=== PATIENT | male | born 1965 | race Caucasian/White ===

== ENCOUNTER 2020-05-25 23:50 | Inpatient (IN) | payer MEDICAID ==
[~2020-05-25] VITALS: Ht 154.9 cm; Wt 75.3 kg
[2020-05-26] VITALS (81 sets, daily range): BP systolic 81–219; BP diastolic 43–159
[2020-05-26] MEDS ORDERED: NITROGLYCERIN 0.4MG TABLET SL SL PRN (00:30)
[2020-05-26] MEDS ORDERED: NITROGLYCERIN 50MG PREMIX 250 ML IV ONE (00:30)
[2020-05-26] MEDS ORDERED: ASPIRIN 81MG TABLET PO ONE (00:30)
[2020-05-26 00:45] LABS: BASOPHILS % 0.6 % (0.0-2.0); EOSINOPHILS % 2.2 % (0.0-5.0); HEMATOCRIT. 43.2 % (42.0-52.0); HEMOGLOBIN. 14.2 g/dL (14.0-18.0); LYMPHOCYTES % 24.6 % (20.0-50.0); MEAN CORPUSCULAR HEMOGLOBIN 29.7 pg (28.0-32.0); MEAN CORPUSCULAR VOLUME 90.5 fL (80.0-94.0); MEAN PLATELET VOLUME 11.9 fl (7.4-10.4); MONOCYTES % 6.2 % (2.0-8.0); NEUTROPHILS % 66.4 % (40.0-76.0); PLATELET 269 x1000/uL (130-400); RED BLOOD CELL COUNT 4.77 mill/uL (4.7-6.1); RED CELL DISTRIBUTION WIDTH 13.7 % (11.6-14.6)
[2020-05-26] MEDS ORDERED: HEPARIN 25,000 UNITS PREMIX 250 ML IV PRN (01:00)
[2020-05-26] MEDS ORDERED: HEPARIN 5000 UNITS/ML VIAL IV SCH (01:00)
[2020-05-26] MEDS ORDERED: HEPARIN SODIUM 1,000 UNIT/1ML VIAL IV ONE (01:00)
[2020-05-26] MEDS ORDERED: MORPHINE SULFATE 4 MG/ML CPJ (NOT FOR IM USE) IV ONE (01:00)
[2020-05-26] MEDS ORDERED: ONDANSETRON HCL 4MG/2ML INJ IV ONE (01:00)
[2020-05-26 01:07] LABS: CHLORIDE 107 mEq/L (98-107)
[2020-05-26 01:08] LABS: INR 0.9; PARTIAL THROMBOPLASTIN TIME 27.7 sec (23.4-31.0); PROTHROMBIN TIME 9.5 sec (9.6-11.0)
[2020-05-26 01:11] LABS: ETHANOL BLOOD < 10 mg/dL
[2020-05-26] MEDS ORDERED: LABETALOL 5MG/ML SYR 20 MG/4 ML SYRINGE IV NR (01:30)
[2020-05-26] MEDS ORDERED: LABETALOL HCL 20MG/4ML CARPUJECT IV ONE (01:30)
[2020-05-26] MEDS ORDERED: NITROGLYCERIN OINT 1GM/INCH UDPKT TD ONE (01:45)
[2020-05-26] MEDS ORDERED: FUROSEMIDE 40MG/4ML VIAL IVP ONE (01:45)
[2020-05-26] MEDS ORDERED: LIDOCAINE HCL 1% 20ML VIAL (Pyxis) INJ ONE ×3 (02:00→10:15)
[2020-05-26] MEDS ORDERED: FENTANYL CITRATE/PF 50MCG/ML 2ML VIAL ONE (02:00)
[2020-05-26] MEDS ORDERED: MIDAZOLAM HCL 5 MG/5 ML VIAL ONE (02:00)
[2020-05-26] MEDS ORDERED: IODIXANOL 320MG/ML 100 ML BOTTLE IV ONE ×2 (02:01→02:49)
[2020-05-26 02:40] LABS: CLARITY URINE CLEAR (CLEAR); COLOR URINE YELLOW (YELLOW); KETONES URINE NEGATIVE (NEGATIVE); LEUKOCYTE ESTERASE URINE NEGATIVE (NEGATIVE); NITRITE URINE NEGATIVE (NEGATIVE); OCCULT BLOOD URINE 1+ (NEGATIVE); PROTEIN URINE 4+ (NEGATIVE); SPECIFIC GRAVITY URINE 1.023 (1.005-1.030); UROBILINOGEN URINE 0.2 E.U./dL (0.2-1.0)
[2020-05-26 02:54] LABS: *AMPHETAMINES SCREEN URINE NEGATIVE (NEGATIVE); *BARBITURATES SCREEN URINE NEGATIVE (NEGATIVE); *BENZODIAZEPINES SCREEN URINE NEGATIVE (NEGATIVE); *COCAINE SCREEN URINE NEGATIVE (NEGATIVE)
[2020-05-26 02:55] LABS: CANNABINOID URINE SCREEN NEGATIVE (NEGATIVE); METHADONE URINE SCREEN NEGATIVE (NEGATIVE); OPIATES URINE SCREEN NEGATIVE (NEGATIVE); PHENCYCLIDINE URINE SCREEN NEGATIVE (NEGATIVE)
[2020-05-26] MEDS ORDERED: MORPHINE SULFATE 2 MG/ML CPJ (NOT FOR IM USE) IV PRN (03:00)
[2020-05-26] MEDS ORDERED: ATROPINE SULFATE 1MG/10ML SYR IV PRN (03:00)
[2020-05-26] MEDS ORDERED: ACETAMINOPHEN 325MG TABLET PO PRN (03:00)
[2020-05-26] MEDS: NITROGLYCERIN 50MG PREMIX 250 ML IV PRN ×4 (04:00→23:23)
[2020-05-26 04:48] LABS: BG BASE EXCESS -7.4 mmol/L (-2.0-2.0); BG CARBOXYHEMOGLOBIN 0.3 % (0.5-1.5); BG DEOXYHEMOGLOBIN 2.9 % (0.0-5.0); BG FRACTION INSPIRED OXYGEN 40; BG HCO3 ACT 18.2 mmol/L (22.0-26.0); BG METHEMOGLOBIN 0.2 % (0.0-1.5); BG OXYGEN SATURATION 97.1 % (92.0-98.5); BG OXYHEMOGLOBIN 96.6 % (94.0-97.0); BG PCO2 37.1 mmHg (35.0-45.0); BG PH 7.308 (7.350-7.450); BG PO2 101.3 mmHg (75.0-100.0); BG SAMPLE SITE RIGHT RADIAL; BG TOTAL HEMOGLOBIN 13.6 g/dL (12.0-18.0); BG VENT MODE MASK - BIPAP
[2020-05-26] MEDS ORDERED: TICAGRELOR 90 MG TABLET PO ONE (04:52)
[2020-05-26 05:36] LABS: BASOPHILS % 0.3 % (0.0-2.0); EOSINOPHILS % 0.1 % (0.0-5.0); HEMATOCRIT. 39.2 % (42.0-52.0); HEMOGLOBIN. 12.9 g/dL (14.0-18.0); LYMPHOCYTES % 7.7 % (20.0-50.0); MEAN CORPUSCULAR HEMOGLOBIN 29.8 pg (28.0-32.0); MEAN CORPUSCULAR VOLUME 90.3 fL (80.0-94.0); MEAN PLATELET VOLUME 12.6 fl (7.4-10.4); MONOCYTES % 5.4 % (2.0-8.0); NEUTROPHILS % 86.5 % (40.0-76.0); PLATELET 203 x1000/uL (130-400); RED BLOOD CELL COUNT 4.34 mill/uL (4.7-6.1); RED CELL DISTRIBUTION WIDTH 13.7 % (11.6-14.6)
[2020-05-26] MEDS: HYDRALAZINE HCL 50MG TABLET PO SCH ×3 (06:23→21:14)
[2020-05-26] MEDS ORDERED: CLONIDINE 0.1MG TABLET PO PRN (08:00)
[2020-05-26] MEDS ORDERED: ONDANSETRON HCL 4MG/2ML INJ IV PRN (08:00)
[2020-05-26] MEDS ORDERED: DIPHENHYDRAMINE 50MG/ML VIAL IV PRN (08:00)
[2020-05-26] MEDS ORDERED: DEXTROSE 50% WATER 50ML SYRINGE IV PRN (08:00)
[2020-05-26] MEDS ORDERED: IPRATROPIUM/ALBUTEROL 0.5-3(2.5)MG/3ML NEB HHN PRN (08:00)
[2020-05-26] MEDS: CLOPIDOGREL 75MG TABLET PO SCH (08:54)
[2020-05-26] MEDS: ASPIRIN 81MG TABLET PO SCH (08:54)
[2020-05-26] MEDS: INSULIN LISPRO 100 UNITS/ML SUBCUT SCH ×4 (08:54→21:50)
[2020-05-26] MEDS: CARVEDILOL 6.25 MG TABLET PO SCH ×3 (08:56→21:14)
[2020-05-26] MEDS ORDERED: FUROSEMIDE 40MG TABLET PO SCH (09:00)
[2020-05-26] MEDS: FUROSEMIDE 100MG/10ML VIAL IVP SCH ×2 (09:04→21:33)
[2020-05-26] MEDS: BLOOD SUGAR DIAGNOSTIC STRIP TEST SCH ×3 (12:58→21:40)
[2020-05-26 14:48] LABS: HEMATOCRIT. 36.7 % (42.0-52.0); HEMOGLOBIN. 12.3 g/dL (14.0-18.0); MEAN CORPUSCULAR HEMOGLOBIN 30.1 pg (28.0-32.0); MEAN CORPUSCULAR VOLUME 89.7 fL (80.0-94.0); MEAN PLATELET VOLUME 12.3 fl (7.4-10.4); PLATELET 201 x1000/uL (130-400); RED BLOOD CELL COUNT 4.09 mill/uL (4.7-6.1); RED CELL DISTRIBUTION WIDTH 13.6 % (11.6-14.6)
[2020-05-26 18:00] LABS: PLATELET ESTIMATE NORMAL
[2020-05-26] MEDS ORDERED: ATORVASTATIN CALCIUM 40MG TABLET PO SCH (21:00)
[2020-05-27] VITALS (40 sets, daily range): BP systolic 102–161; BP diastolic 45–96
[2020-05-27] MEDS: HYDRALAZINE HCL 50MG TABLET PO SCH ×3 (05:55→22:15)
[2020-05-27 06:13] LABS: BASOPHILS % 0.4 % (0.0-2.0); EOSINOPHILS % 0.5 % (0.0-5.0); HEMATOCRIT. 33.4 % (42.0-52.0); HEMOGLOBIN. 11.2 g/dL (14.0-18.0); LYMPHOCYTES % 21.6 % (20.0-50.0); MEAN CORPUSCULAR HEMOGLOBIN 30.2 pg (28.0-32.0); MEAN CORPUSCULAR VOLUME 89.9 fL (80.0-94.0); MEAN PLATELET VOLUME 12.2 fl (7.4-10.4); MONOCYTES % 9.7 % (2.0-8.0); NEUTROPHILS % 67.8 % (40.0-76.0); PLATELET 191 x1000/uL (130-400); RED BLOOD CELL COUNT 3.72 mill/uL (4.7-6.1); RED CELL DISTRIBUTION WIDTH 13.6 % (11.6-14.6)
[2020-05-27] MEDS: BLOOD SUGAR DIAGNOSTIC STRIP TEST SCH ×4 (06:19→20:47)
[2020-05-27 06:21] LABS: CHLORIDE 107 mEq/L (98-107)
[2020-05-27 06:32] LABS: HDL CHOLESTEROL 46 mg/dL (40-59)
[2020-05-27 06:34] LABS: LDL CHOLESTEROL 129 mg/dL (5-100)
[2020-05-27 06:37] LABS: PHOSPHORUS 5.9 mg/dL (2.5-4.9)
[2020-05-27] MEDS: INSULIN LISPRO 100 UNITS/ML SUBCUT SCH ×4 (06:37→22:13)
[2020-05-27 06:44] LABS: CREATINE KINASE 1454 IU/L (39-308)
[2020-05-27] MEDS ORDERED: LORAZEPAM 2MG/ML CPJ IV PRN (09:00)
[2020-05-27] MEDS: CARVEDILOL 6.25 MG TABLET PO SCH ×2 (09:10→22:16)
[2020-05-27] MEDS: CLOPIDOGREL 75MG TABLET PO SCH (09:10)
[2020-05-27] MEDS: FUROSEMIDE 100MG/10ML VIAL IVP SCH ×2 (09:10→22:18)
[2020-05-27] MEDS: ASPIRIN 81MG TABLET PO SCH (09:10)
[2020-05-27] MEDS: CHLORDIAZEPOXIDE 25MG CAPSULE PO SCH ×3 (10:54→22:15)
[2020-05-27] MEDS ORDERED: INFLUENZA VACCINE 05/PF 0.5 ML VIAL IM ONE (18:15)
[2020-05-27] MEDS: ATORVASTATIN CALCIUM 40MG TABLET PO SCH (22:16)
[2020-05-27] MEDS: HEPARIN 5000 UNITS/ML VIAL SUBCUT SCH (22:22)
[2020-05-28] VITALS (13 sets, daily range): BP systolic 127–165; BP diastolic 67–101
[2020-05-28] MEDS: CHLORDIAZEPOXIDE 25MG CAPSULE PO SCH ×3 (06:24→21:12)
[2020-05-28] MEDS: BLOOD SUGAR DIAGNOSTIC STRIP TEST SCH ×4 (06:25→20:41)
[2020-05-28] MEDS: HYDRALAZINE HCL 50MG TABLET PO SCH ×3 (06:25→21:13)
[2020-05-28] MEDS: INSULIN LISPRO 100 UNITS/ML SUBCUT SCH ×4 (06:25→21:10)
[2020-05-28 07:06] LABS: BASOPHILS % 0.3 % (0.0-2.0); EOSINOPHILS % 1.1 % (0.0-5.0); HEMATOCRIT. 35.7 % (42.0-52.0); LYMPHOCYTES % 19.7 % (20.0-50.0); MEAN CORPUSCULAR HEMOGLOBIN 30.2 pg (28.0-32.0); MEAN CORPUSCULAR VOLUME 90.1 fL (80.0-94.0); MEAN PLATELET VOLUME 12.2 fl (7.4-10.4); MONOCYTES % 8.5 % (2.0-8.0); NEUTROPHILS % 70.4 % (40.0-76.0); PLATELET 197 x1000/uL (130-400); RED BLOOD CELL COUNT 3.97 mill/uL (4.7-6.1); RED CELL DISTRIBUTION WIDTH 13.7 % (11.6-14.6)
[2020-05-28] MEDS: CLOPIDOGREL 75MG TABLET PO SCH (09:31)
[2020-05-28] MEDS: ASPIRIN 81MG TABLET PO SCH (09:31)
[2020-05-28] MEDS: FUROSEMIDE 100MG/10ML VIAL IVP SCH (09:31)
[2020-05-28] MEDS: CARVEDILOL 6.25 MG TABLET PO SCH ×2 (09:31→21:13)
[2020-05-28] MEDS: HEPARIN 5000 UNITS/ML VIAL SUBCUT SCH ×2 (09:32→21:13)
[2020-05-28] MEDS: DOCUSATE SODIUM 100MG CAPSULE PO SCH (21:12)
[2020-05-28] MEDS: ATORVASTATIN CALCIUM 40MG TABLET PO SCH (21:12)
[2020-05-29] VITALS (11 sets, daily range): BP systolic 110–136; BP diastolic 62–104
[2020-05-29 05:50] LABS: BASOPHILS % 0.4 % (0.0-2.0); EOSINOPHILS % 2.7 % (0.0-5.0); HEMATOCRIT. 35.8 % (42.0-52.0); HEMOGLOBIN. 12.1 g/dL (14.0-18.0); LYMPHOCYTES % 18.7 % (20.0-50.0); MEAN CORPUSCULAR HEMOGLOBIN 30.3 pg (28.0-32.0); MEAN CORPUSCULAR VOLUME 89.5 fL (80.0-94.0); MEAN PLATELET VOLUME 12.1 fl (7.4-10.4); MONOCYTES % 12.7 % (2.0-8.0); NEUTROPHILS % 65.5 % (40.0-76.0); PLATELET 197 x1000/uL (130-400); RED CELL DISTRIBUTION WIDTH 13.3 % (11.6-14.6)
[2020-05-29] MEDS: BLOOD SUGAR DIAGNOSTIC STRIP TEST SCH ×4 (06:06→21:00)
[2020-05-29] MEDS: CHLORDIAZEPOXIDE 25MG CAPSULE PO SCH ×3 (06:07→21:19)
[2020-05-29] MEDS: HYDRALAZINE HCL 50MG TABLET PO SCH ×3 (06:07→21:19)
[2020-05-29 06:32] LABS: PHOSPHORUS 6.4 mg/dL (2.5-4.9)
[2020-05-29] MEDS: CLOPIDOGREL 75MG TABLET PO SCH (08:52)
[2020-05-29] MEDS: ASPIRIN 81MG TABLET PO SCH (08:52)
[2020-05-29] MEDS: DOCUSATE SODIUM 100MG CAPSULE PO SCH ×2 (08:53→17:00)
[2020-05-29] MEDS: CARVEDILOL 6.25 MG TABLET PO SCH ×2 (08:53→21:19)
[2020-05-29] MEDS: HEPARIN 5000 UNITS/ML VIAL SUBCUT SCH ×2 (08:53→21:19)
[2020-05-29] MEDS: INSULIN LISPRO 100 UNITS/ML SUBCUT SCH ×4 (08:54→21:15)
[2020-05-29] MEDS: ATORVASTATIN CALCIUM 40MG TABLET PO SCH (21:19)
[2020-05-30] VITALS (12 sets, daily range): BP systolic 112–148; BP diastolic 71–93
[2020-05-30] MEDS: BLOOD SUGAR DIAGNOSTIC STRIP TEST SCH ×4 (06:39→20:55)
[2020-05-30] MEDS: CHLORDIAZEPOXIDE 25MG CAPSULE PO SCH ×3 (06:44→21:00)
[2020-05-30] MEDS: HYDRALAZINE HCL 50MG TABLET PO SCH ×3 (06:45→21:58)
[2020-05-30 07:01] LABS: BASOPHILS % 0.4 % (0.0-2.0); EOSINOPHILS % 3.2 % (0.0-5.0); HEMATOCRIT. 38.4 % (42.0-52.0); HEMOGLOBIN. 12.9 g/dL (14.0-18.0); LYMPHOCYTES % 17.5 % (20.0-50.0); MEAN CORPUSCULAR HEMOGLOBIN 30.1 pg (28.0-32.0); MEAN CORPUSCULAR VOLUME 89.5 fL (80.0-94.0); MEAN PLATELET VOLUME 11.9 fl (7.4-10.4); MONOCYTES % 10.5 % (2.0-8.0); NEUTROPHILS % 68.4 % (40.0-76.0); PLATELET 229 x1000/uL (130-400); RED BLOOD CELL COUNT 4.29 mill/uL (4.7-6.1); RED CELL DISTRIBUTION WIDTH 13.2 % (11.6-14.6)
[2020-05-30 07:07] LABS: PHOSPHORUS 6.7 mg/dL (2.5-4.9)
[2020-05-30] MEDS: INSULIN LISPRO 100 UNITS/ML SUBCUT SCH ×4 (07:20→21:59)
[2020-05-30 07:26] LABS: HEPATITIS B SURFACE AB 5.3 mIU/mL
[2020-05-30 07:37] LABS: HEPATITIS B SURFACE ANTIGEN NEGATIVE
[2020-05-30] MEDS: ASPIRIN 81MG TABLET PO SCH (09:00)
[2020-05-30] MEDS: HEPARIN 5000 UNITS/ML VIAL SUBCUT SCH ×2 (09:00→20:55)
[2020-05-30] MEDS: CLOPIDOGREL 75MG TABLET PO SCH (09:00)
[2020-05-30] MEDS: DOCUSATE SODIUM 100MG CAPSULE PO SCH ×2 (09:28→17:07)
[2020-05-30] MEDS: CARVEDILOL 6.25 MG TABLET PO SCH (09:28)
[2020-05-30] MEDS ORDERED: CARVEDILOL 6.25 MG TABLET PO SCH ×2 (10:00→21:00)
[2020-05-30] MEDS ORDERED: LIDOCAINE HCL 1% 20ML VIAL (Pyxis) INJ ONE (10:06)
[2020-05-30] MEDS ORDERED: SODIUM BICARBONATE 4% (2.4MEQ) 5ML VIAL IV ONE (10:06)
[2020-05-30] MEDS ORDERED: CEFAZOLIN 1000MG PREMIX 50 ML IV SCH (10:30)
[2020-05-30] MEDS: ATORVASTATIN CALCIUM 40MG TABLET PO SCH (20:53)
[2020-05-31] VITALS (12 sets, daily range): BP systolic 93–145; BP diastolic 43–91
[2020-05-31] MEDS: BLOOD SUGAR DIAGNOSTIC STRIP TEST SCH ×4 (05:53→21:00)
[2020-05-31] MEDS: CHLORDIAZEPOXIDE 25MG CAPSULE PO SCH ×3 (05:53→23:14)
[2020-05-31] MEDS: HYDRALAZINE HCL 50MG TABLET PO SCH ×3 (05:53→22:00)
[2020-05-31 07:00] LABS: BASOPHILS % 0.5 % (0.0-2.0); EOSINOPHILS % 2.7 % (0.0-5.0); HEMATOCRIT. 35.6 % (42.0-52.0); LYMPHOCYTES % 18.2 % (20.0-50.0); MEAN CORPUSCULAR HEMOGLOBIN 29.9 pg (28.0-32.0); MEAN PLATELET VOLUME 12.1 fl (7.4-10.4); MONOCYTES % 9.4 % (2.0-8.0); NEUTROPHILS % 69.2 % (40.0-76.0); PLATELET 222 x1000/uL (130-400)
[2020-05-31 07:20] LABS: PHOSPHORUS 7.2 mg/dL (2.5-4.9)
[2020-05-31] MEDS: HEPARIN 5000 UNITS/ML VIAL SUBCUT SCH (09:00)
[2020-05-31] MEDS: INSULIN LISPRO 100 UNITS/ML SUBCUT SCH ×4 (09:03→23:15)
[2020-05-31 09:11] LABS: HIV SCREEN 4G Non Reactive (Non Reactive)
[2020-05-31] MEDS: ISOSORBIDE MONONITRATE 30MG TABLET SR 24HR PO SCH (14:08)
[2020-05-31] MEDS: DOCUSATE SODIUM 100MG CAPSULE PO SCH ×2 (14:08→17:40)
[2020-05-31] MEDS: CLOPIDOGREL 75MG TABLET PO SCH (14:09)
[2020-05-31] MEDS: CARVEDILOL 12.5MG TABLET PO SCH ×2 (14:09→21:00)
[2020-05-31] MEDS: ASPIRIN 81MG TABLET PO SCH (14:09)
[2020-06-01] VITALS (28 sets, daily range): BP systolic 100–142; BP diastolic 54–92
[2020-06-01] MEDS: ATORVASTATIN CALCIUM 40MG TABLET PO SCH ×2 (00:29→22:38)
[2020-06-01] MEDS: HEPARIN 5000 UNITS/ML VIAL SUBCUT SCH ×3 (00:30→22:40)
[2020-06-01] MEDS: BLOOD SUGAR DIAGNOSTIC STRIP TEST SCH ×4 (06:05→22:50)
[2020-06-01] MEDS: HYDRALAZINE HCL 50MG TABLET PO SCH ×3 (06:07→22:00)
[2020-06-01] MEDS: CHLORDIAZEPOXIDE 25MG CAPSULE PO SCH (06:07)
[2020-06-01 06:55] LABS: BASOPHILS % 0.6 % (0.0-2.0); EOSINOPHILS % 2.5 % (0.0-5.0); HEMATOCRIT. 34.9 % (42.0-52.0); HEMOGLOBIN. 11.9 g/dL (14.0-18.0); LYMPHOCYTES % 18.8 % (20.0-50.0); MEAN CORPUSCULAR HEMOGLOBIN 30.2 pg (28.0-32.0); MEAN CORPUSCULAR VOLUME 88.5 fL (80.0-94.0); MEAN PLATELET VOLUME 11.6 fl (7.4-10.4); MONOCYTES % 10.4 % (2.0-8.0); NEUTROPHILS % 67.7 % (40.0-76.0); PLATELET 229 x1000/uL (130-400); RED BLOOD CELL COUNT 3.95 mill/uL (4.7-6.1); RED CELL DISTRIBUTION WIDTH 12.8 % (11.6-14.6)
[2020-06-01] MEDS: INSULIN LISPRO 100 UNITS/ML SUBCUT SCH ×4 (07:20→22:50)
[2020-06-01] MEDS ORDERED: CEFAZOLIN 1000MG PREMIX 50 ML IV ONE ×2 (08:00→08:14)
[2020-06-01] MEDS ORDERED: LIDOCAINE HCL 1% 20ML VIAL (Pyxis) INJ ONE (08:06)
[2020-06-01] MEDS ORDERED: SODIUM BICARBONATE 4% (2.4MEQ) 5ML VIAL IV ONE (08:06)
[2020-06-01] MEDS ORDERED: FENTANYL CITRATE/PF 50MCG/ML 2ML VIAL ONE (08:14)
[2020-06-01] MEDS ORDERED: FENTANYL CITRATE/PF 50MCG/ML 2ML VIAL IV ONE (09:15)
[2020-06-01] MEDS: CLOPIDOGREL 75MG TABLET PO SCH (13:44)
[2020-06-01] MEDS: ISOSORBIDE MONONITRATE 30MG TABLET SR 24HR PO SCH (13:44)
[2020-06-01] MEDS: CARVEDILOL 12.5MG TABLET PO SCH ×2 (13:44→22:39)
[2020-06-01] MEDS: ASPIRIN 81MG TABLET PO SCH (13:44)
[2020-06-01] MEDS: DOCUSATE SODIUM 100MG CAPSULE PO SCH ×2 (13:45→17:31)
[2020-06-02] VITALS (10 sets, daily range): BP systolic 91–137; BP diastolic 51–97
[2020-06-02] MEDS: HYDRALAZINE HCL 50MG TABLET PO SCH ×2 (06:00→14:00)
[2020-06-02] MEDS: BLOOD SUGAR DIAGNOSTIC STRIP TEST SCH ×2 (06:09→11:50)
[2020-06-02 06:25] LABS: BASOPHILS % 0.6 % (0.0-2.0); EOSINOPHILS % 1.8 % (0.0-5.0); HEMATOCRIT. 32.5 % (42.0-52.0); HEMOGLOBIN. 11.2 g/dL (14.0-18.0); LYMPHOCYTES % 19.9 % (20.0-50.0); MEAN CORPUSCULAR HEMOGLOBIN 30.3 pg (28.0-32.0); MEAN CORPUSCULAR VOLUME 88.3 fL (80.0-94.0); MEAN PLATELET VOLUME 11.4 fl (7.4-10.4); MONOCYTES % 10.7 % (2.0-8.0); PLATELET 229 x1000/uL (130-400); RED BLOOD CELL COUNT 3.68 mill/uL (4.7-6.1); RED CELL DISTRIBUTION WIDTH 12.8 % (11.6-14.6)
[2020-06-02 07:06] LABS: PHOSPHORUS 5.8 mg/dL (2.5-4.9)
[2020-06-02] MEDS: INSULIN LISPRO 100 UNITS/ML SUBCUT SCH ×2 (08:29→13:06)
[2020-06-02] MEDS: ISOSORBIDE MONONITRATE 30MG TABLET SR 24HR PO SCH (08:31)
[2020-06-02] MEDS: HEPARIN 5000 UNITS/ML VIAL SUBCUT SCH (08:32)
[2020-06-02] MEDS: CLOPIDOGREL 75MG TABLET PO SCH (08:32)
[2020-06-02] MEDS: ASPIRIN 81MG TABLET PO SCH (08:32)
[2020-06-02] MEDS: DOCUSATE SODIUM 100MG CAPSULE PO SCH (08:32)
[2020-06-02] MEDS: CARVEDILOL 12.5MG TABLET PO SCH (09:00)
[2020-06-02] MEDS ORDERED: ASPI-1160 PO (13:37)
[2020-06-02] MEDS ORDERED: COR12 PO (13:37)
[2020-06-02] MEDS ORDERED: LOSA25TA3 PO (13:37)
[2020-06-02] MEDS ORDERED: ISOS30TA6 PO (13:37)
[2020-06-02] MEDS ORDERED: CLOP75TA15 PO (13:37)
[2020-06-02] MEDS ORDERED: LIP40 PO (13:37)
[2020-06-02] MEDS ORDERED: GLIP5TAB12 MT (13:37)
[2020-06-03] MEDS ORDERED: LOSARTAN POTASSIUM 25 MG TABLET PO SCH (09:00)
== END 2020-06-02 18:15 | disposition home or self-care (01) | DRG 174 ==
LOC: ER 23:50 → EDBEDREQ 05-26 00:54 → CVICU 05-26 00:55 → EDBEDREQ 05-26 00:55 → EDBEDREQSVC 05-26 01:02 → EDBEDREQTM 05-26 01:02 → 3WST 05-27 13:46
PROVIDERS: ADMIT Internal Medicine; ATTEND Internal Medicine
PROC: 027034Z Dilation of Coronary Artery, One Artery with Drug-eluting Intraluminal Device, Percutaneous Approach (ICD-10-PCS; principal; 2020-05-26)
PROC: B2111ZZ Fluoroscopy of Multiple Coronary Arteries using Low Osmolar Contrast (ICD-10-PCS; 2020-05-26)
PROC: 02HV33Z Insertion of Infusion Device into Superior Vena Cava, Percutaneous Approach (ICD-10-PCS; 2020-05-26)
PROC: B548ZZA Ultrasonography of Superior Vena Cava, Guidance (ICD-10-PCS; 2020-05-26)
PROC: 5A1D70Z Performance of Urinary Filtration, Intermittent, Less than 6 Hours Per Day (ICD-10-PCS; 2020-05-26)
PROC: 5A09357 Assistance with Respiratory Ventilation, Less than 24 Consecutive Hours, Continuous Positive Airway Pressure (ICD-10-PCS; 2020-05-26)
PROC: 5A1D70Z Performance of Urinary Filtration, Intermittent, Less than 6 Hours Per Day (ICD-10-PCS; 2020-05-29)
PROC: 5A1D70Z Performance of Urinary Filtration, Intermittent, Less than 6 Hours Per Day (ICD-10-PCS; 2020-05-31)
PROC: 02PYX3Z Removal of Infusion Device from Great Vessel, External Approach (ICD-10-PCS; 2020-06-01)
PROC: 02HV33Z Insertion of Infusion Device into Superior Vena Cava, Percutaneous Approach (ICD-10-PCS; 2020-06-01)
PROC: 0JH63XZ Insertion of Tunneled Vascular Access Device into Chest Subcutaneous Tissue and Fascia, Percutaneous Approach (ICD-10-PCS; 2020-06-01)
PROC: B518ZZA Fluoroscopy of Superior Vena Cava, Guidance (ICD-10-PCS; 2020-06-01)
PROC: 5A1D70Z Performance of Urinary Filtration, Intermittent, Less than 6 Hours Per Day (ICD-10-PCS; 2020-06-02)
DX: I21.09 ST elevation (STEMI) myocardial infarction involving other coronary artery of anterior wall (principal); J96.01 Acute respiratory failure with hypoxia; I25.5 Ischemic cardiomyopathy; N17.9 Acute kidney failure, unspecified; I16.1 Hypertensive emergency; D64.9 Anemia, unspecified; E11.22 Type 2 diabetes mellitus with diabetic chronic kidney disease; E43 Unspecified severe protein-calorie malnutrition; E78.5 Hyperlipidemia, unspecified; E87.2 Acidosis; I13.2 Hypertensive heart and chronic kidney disease with heart failure and with stage 5 chronic kidney disease, or end stage renal disease; N18.5 Chronic kidney disease, stage 5; E78.00 Pure hypercholesterolemia, unspecified; R74.01 Elevation of levels of liver transaminase levels; R35.0 Frequency of micturition; I47.1 Supraventricular tachycardia; I13.0 Hypertensive heart and chronic kidney disease with heart failure and stage 1 through stage 4 chronic kidney disease, or unspecified chronic kidney disease; I50.43 Acute on chronic combined systolic (congestive) and diastolic (congestive) heart failure; Z20.828 Contact with and (suspected) exposure to other viral communicable diseases; Z82.49 Family history of ischemic heart disease and other diseases of the circulatory system; Z83.3 Family history of diabetes mellitus; Z91.14 Patient's other noncompliance with medication regimen; Z95.5 Presence of coronary angioplasty implant and graft; Z91.19 Patient's noncompliance with other medical treatment and regimen; Z99.2 Dependence on renal dialysis; Z68.31 Body mass index [BMI] 31.0-31.9, adult
CPT/HCPCS: 36415; 36556; 36558; 36589; 36600; 71045; 76770; 76937; 77001; 80048; 80053; 80061; 80305; 80320; 81003; 82375; 82550; 82805; 82962; 83036; 83735; 83880; 84100; 84443; 84484; 85025; 85347; 86705; 86706; 86803; 87340; 87389; 87635; 87804; 90686; 92941; 93005; 93306; 93458; 93970; 94640; 94660; 99152; 99153; 99291; C1725; C1750; C1752; C1760; C1769; C1874; C1887; C1893; J0690; J1642; J1644; J1815; J1940; J2250; J2270; J2405; J3010; J3490; Q9967; G0480; G0500; J8499

== ENCOUNTER 2020-07-26 06:37 | Emergency (ER) | payer MEDICAID ==
[2020-07-26] VITALS (13 sets, daily range): BP systolic 129–151; BP diastolic 70–81
[~2020-07-26] VITALS: Ht 160 cm; Wt 82.0 kg
[~2020-07-26 06:37] MED LIST: ASPI-1160 PO; CLOP75TA15 PO; COR12 PO; GLIP5TAB12 MT; ISOS30TA6 PO; LIP40 PO; LOSA25TA3 PO
[2020-07-26 10:30] LABS: BASOPHILS % 0.9 % (0.0-2.0); HEMATOCRIT. 33.2 % (42.0-52.0); HEMOGLOBIN. 11.4 g/dL (14.0-18.0); LYMPHOCYTES % 21.2 % (20.0-50.0); MEAN CORPUSCULAR HEMOGLOBIN 30.3 pg (28.0-32.0); MEAN CORPUSCULAR VOLUME 88.2 fL (80.0-94.0); MEAN PLATELET VOLUME 10.1 fl (7.4-10.4); MONOCYTES % 7.1 % (2.0-8.0); NEUTROPHILS % 62.8 % (40.0-76.0); PLATELET 173 x1000/uL (130-400); RED BLOOD CELL COUNT 3.77 mill/uL (4.7-6.1); RED CELL DISTRIBUTION WIDTH 13.4 % (11.6-14.6)
[2020-07-26 10:38] LABS: CHLORIDE 106 mEq/L (98-107)
[2020-07-26] MEDS ORDERED: CEFAZOLIN 1000MG PREMIX 50 ML IV ONE ×2 (12:23→12:30)
[2020-07-26] MEDS ORDERED: LIDOCAINE HCL 1% 20ML VIAL (Pyxis) INJ ONE (12:27)
[2020-07-26] MEDS ORDERED: SODIUM BICARBONATE 4% (2.4MEQ) 5ML VIAL IV ONE (12:27)
[2020-07-26 13:58] LABS: PROTHROMBIN TIME 10.7 sec (9.6-11.0)
[2020-07-26] MEDS ORDERED: HEPARIN 1000 UNITS/ML 10ML ONE (14:52)
[2020-07-26] MEDS ORDERED: IOHEXOL-300 50 ML BOTTLE IV ONE (15:15)
== END 2020-07-26 16:00 | disposition home or self-care (01) ==
LOC: ER 06:37
DX: T82.49XA Other complication of vascular dialysis catheter, initial encounter (principal); I12.0 Hypertensive chronic kidney disease with stage 5 chronic kidney disease or end stage renal disease; E11.22 Type 2 diabetes mellitus with diabetic chronic kidney disease; N18.6 End stage renal disease; E78.00 Pure hypercholesterolemia, unspecified; Z99.2 Dependence on renal dialysis; Z79.899 Other long term (current) drug therapy; Z79.82 Long term (current) use of aspirin; Z98.890 Other specified postprocedural states; Z20.828 Contact with and (suspected) exposure to other viral communicable diseases; Y92.89 Other specified places as the place of occurrence of the external cause
CPT/HCPCS: 36415; 36581; 71045; 77001; 80053; 85025; 85610; 87426; 93005; 96365; 99285; C1750; C1769; J0690; J1644; J3490; Q9967; Z7610; J1642

== ENCOUNTER 2021-06-26 06:27 | Emergency (ER) | payer MEDICAID ==
[~2021-06-26] VITALS: Ht 160 cm; Wt 82.0 kg
[~2021-06-26 06:27] MED LIST changes: -ISOS30TA6 PO; +ISOS30TA91 PO
[2021-06-26 07:14] LABS: BASOPHILS % 0.5 % (0.0-2.0); EOSINOPHILS % 2.7 % (0.0-5.0); HEMATOCRIT. 34.1 % (42.0-52.0); HEMOGLOBIN. 11.4 g/dL (14.0-18.0); LYMPHOCYTES % 17.9 % (20.0-50.0); MEAN CORPUSCULAR HEMOGLOBIN 30.7 pg (28.0-32.0); MEAN CORPUSCULAR VOLUME 91.5 fL (80.0-94.0); MEAN PLATELET VOLUME 10.8 fl (7.4-10.4); MONOCYTES % 7.6 % (2.0-8.0); NEUTROPHILS % 71.3 % (40.0-76.0); PLATELET 171 x1000/uL (130-400); RED BLOOD CELL COUNT 3.72 mill/uL (4.7-6.1)
[2021-06-26 07:20] LABS: CHLORIDE 117 mEq/L (98-107)
[2021-06-26] MEDS ORDERED: DEXTROSE 50% WATER 50ML SYRINGE IV ONE (07:45)
[2021-06-26 08:13] LABS: CLARITY URINE CLEAR (CLEAR); COLOR URINE YELLOW (YELLOW); KETONES URINE NEGATIVE (NEGATIVE); LEUKOCYTE ESTERASE URINE NEGATIVE (NEGATIVE); NITRITE URINE NEGATIVE (NEGATIVE); OCCULT BLOOD URINE TRACE (NEGATIVE); PH URINE 5.5 (4.5-8.0); PROTEIN URINE 3+ (NEGATIVE); SPECIFIC GRAVITY URINE 1.014 (1.005-1.030); UROBILINOGEN URINE 0.2 E.U./dL (0.2-1.0)
[2021-06-26 11:00] VITALS: BP 159/90
== END 2021-06-26 11:01 | disposition short-term general hospital (02) ==
LOC: ER 06:27
DX: I12.0 Hypertensive chronic kidney disease with stage 5 chronic kidney disease or end stage renal disease (principal); E11.22 Type 2 diabetes mellitus with diabetic chronic kidney disease; N18.6 End stage renal disease; I25.10 Atherosclerotic heart disease of native coronary artery without angina pectoris; E11.649 Type 2 diabetes mellitus with hypoglycemia without coma; E78.00 Pure hypercholesterolemia, unspecified; Z79.899 Other long term (current) drug therapy; Z99.2 Dependence on renal dialysis; Z98.890 Other specified postprocedural states
CPT/HCPCS: 36415; 71045; 80053; 81003; 82962; 84484; 85025; 93005; 96374; 99285

== ENCOUNTER 2022-05-05 21:57 | Inpatient (IN) | payer MEDICAID, OTHER ==
[~2022-05-05] VITALS: Ht 167.6 cm; Wt 72.6 kg
[2022-05-05] MEDS ORDERED: LABETALOL 5MG/ML SYR 20 MG/4 ML SYRINGE IV ONE (22:45)
[2022-05-05 22:55] LABS: BASOPHILS % 0.7 % (0.0-2.0); EOSINOPHILS % 3.4 % (0.0-5.0); HEMATOCRIT. 24.9 % (42.0-52.0); HEMOGLOBIN. 8.1 g/dL (14.0-18.0); LYMPHOCYTES % 26.9 % (20.0-50.0); MEAN CORPUSCULAR HEMOGLOBIN 30.3 pg (28.0-32.0); MEAN CORPUSCULAR VOLUME 92.8 fL (80.0-94.0); MEAN PLATELET VOLUME 9.7 fl (7.4-10.4); MONOCYTES % 6.3 % (2.0-8.0); NEUTROPHILS % 62.7 % (40.0-76.0); PLATELET 215 x1000/uL (130-400); RED BLOOD CELL COUNT 2.68 mill/uL (4.7-6.1); RED CELL DISTRIBUTION WIDTH 13.4 % (11.6-14.6)
[2022-05-05 22:59] LABS: CHLORIDE 109 mEq/L (98-107)
[2022-05-05 23:23] LABS: BG CARBOXYHEMOGLOBIN 0.3 % (0.5-1.5); BG DEOXYHEMOGLOBIN 1.7 % (0.0-5.0); BG FRACTION INSPIRED OXYGEN 40; BG HCO3 ACT 14.3 mmol/L (22.0-26.0); BG METHEMOGLOBIN 0.1 % (0.0-1.5); BG OXYGEN SATURATION 98.3 % (92.0-98.5); BG OXYHEMOGLOBIN 97.9 % (94.0-97.0); BG PCO2 30.3 mmHg (35.0-45.0); BG PH 7.293 (7.350-7.450); BG PO2 137.8 mmHg (75.0-100.0); BG TOTAL HEMOGLOBIN 9.7 g/dL (12.0-18.0); BG VENT MODE MASK - BIPAP
[2022-05-06] VITALS (8 sets, daily range): BP systolic 146–165; BP diastolic 74–113
[2022-05-06] MEDS ORDERED: LABETALOL 5MG/ML SYR 20 MG/4 ML SYRINGE IV ONE (01:15)
[2022-05-06] MEDS ORDERED: SODIUM BICARBONATE 8.4% 1 MEQ/ML 50ML SYR IV SCH (10:00)
[2022-05-06] MEDS ORDERED: CLONIDINE 0.1MG TABLET PO PRN (10:15)
[2022-05-06] MEDS ORDERED: ACETAMINOPHEN 325MG TABLET PO PRN (10:15)
[2022-05-06] MEDS ORDERED: ONDANSETRON HCL 4MG/2ML INJ IV PRN (10:15)
[2022-05-06] MEDS ORDERED: DEXTROSE 50% WATER 50ML SYRINGE IV PRN (10:45)
[2022-05-06] MEDS: LOSARTAN POTASSIUM 100 MG TABLET PO SCH (11:09)
[2022-05-06] MEDS: INSULIN LISPRO 100 UNITS/ML SUBCUT SCH ×3 (12:00→21:03)
[2022-05-06] MEDS: BLOOD SUGAR DIAGNOSTIC STRIP TEST SCH ×3 (12:30→20:51)
[2022-05-06] MEDS: CALCIUM ACETATE 667MG CAPSULE PO SCH ×2 (13:00→17:22)
[2022-05-06 17:24] LABS: HEPATITIS B SURFACE ANTIGEN NEGATIVE
[2022-05-06] MEDS: EPOETIN ALFA-EPBX 4,000 UNIT/ML VIAL SUBCUT SCH (20:55)
[2022-05-07] VITALS (11 sets, daily range): BP systolic 123–159; BP diastolic 71–90
[2022-05-07 06:32] LABS: BASOPHILS % 0.7 % (0.0-2.0); EOSINOPHILS % 3.8 % (0.0-5.0); HEMATOCRIT. 24.9 % (42.0-52.0); HEMOGLOBIN. 8.3 g/dL (14.0-18.0); MEAN CORPUSCULAR HEMOGLOBIN 30.5 pg (28.0-32.0); MEAN PLATELET VOLUME 9.8 fl (7.4-10.4); MONOCYTES % 8.4 % (2.0-8.0); NEUTROPHILS % 66.1 % (40.0-76.0); PLATELET 191 x1000/uL (130-400); RED BLOOD CELL COUNT 2.71 mill/uL (4.7-6.1); RED CELL DISTRIBUTION WIDTH 13.3 % (11.6-14.6)
[2022-05-07 06:47] LABS: PHOSPHORUS 6.8 mg/dL (2.5-4.9)
[2022-05-07] MEDS: INSULIN LISPRO 100 UNITS/ML SUBCUT SCH ×4 (08:00→20:41)
[2022-05-07] MEDS: BLOOD SUGAR DIAGNOSTIC STRIP TEST SCH ×4 (08:22→20:41)
[2022-05-07] MEDS: CALCIUM ACETATE 667MG CAPSULE PO SCH ×3 (08:51→17:55)
[2022-05-07] MEDS: LOSARTAN POTASSIUM 100 MG TABLET PO SCH (08:51)
[2022-05-07] MEDS: CALCITRIOL 0.25MCG CAPSULE PO SCH (09:12)
[2022-05-07] MEDS: FOLIC ACID/VITAMIN B COMP W-C TABLET PO SCH (10:54)
[2022-05-07] MEDS: CARVEDILOL 3.125 MG TABLET PO SCH (20:43)
[2022-05-08 04:00] VITALS: BP 138/78
[2022-05-08] MEDS: BLOOD SUGAR DIAGNOSTIC STRIP TEST SCH ×4 (07:30→20:55)
[2022-05-08 08:00] VITALS: BP 109/79
[2022-05-08] MEDS: INSULIN LISPRO 100 UNITS/ML SUBCUT SCH ×4 (08:00→21:00)
[2022-05-08] MEDS: LOSARTAN POTASSIUM 100 MG TABLET PO SCH (08:56)
[2022-05-08] MEDS: FOLIC ACID/VITAMIN B COMP W-C TABLET PO SCH (08:56)
[2022-05-08] MEDS: CALCIUM ACETATE 667MG CAPSULE PO SCH ×3 (08:56→17:27)
[2022-05-08] MEDS: CARVEDILOL 3.125 MG TABLET PO SCH ×2 (08:56→20:55)
[2022-05-08] MEDS: CALCITRIOL 0.25MCG CAPSULE PO SCH (08:56)
[2022-05-08 18:08] VITALS: BP 109/79
[2022-05-08 20:00] VITALS: BP 131/75
[2022-05-08] MEDS: EPOETIN ALFA-EPBX 4,000 UNIT/ML VIAL SUBCUT SCH (20:56)
[2022-05-09] VITALS: BP 145/83
[2022-05-09 04:00] VITALS: BP 97/63
[2022-05-09 08:00] VITALS: BP 137/67
[2022-05-09] MEDS: INSULIN LISPRO 100 UNITS/ML SUBCUT SCH ×2 (08:00→12:14)
[2022-05-09] MEDS: BLOOD SUGAR DIAGNOSTIC STRIP TEST SCH ×2 (08:03→12:14)
[2022-05-09] MEDS: CALCITRIOL 0.25MCG CAPSULE PO SCH (08:36)
[2022-05-09] MEDS: CALCIUM ACETATE 667MG CAPSULE PO SCH ×2 (08:36→12:59)
[2022-05-09] MEDS: FOLIC ACID/VITAMIN B COMP W-C TABLET PO SCH (08:36)
[2022-05-09] MEDS: CARVEDILOL 3.125 MG TABLET PO SCH (08:37)
[2022-05-09] MEDS: LOSARTAN POTASSIUM 100 MG TABLET PO SCH (08:37)
== END 2022-05-09 15:30 | disposition home or self-care (01) | DRG 194 ==
LOC: ER 21:57 → 5EST 05-06 00:35 → EDBEDREQ 05-06 00:39 → ENRESERV 05-06 07:06
PROVIDERS: ADMIT Internal Medicine; ATTEND Internal Medicine
PROC: 5A09357 Assistance with Respiratory Ventilation, Less than 24 Consecutive Hours, Continuous Positive Airway Pressure (ICD-10-PCS; principal; 2022-05-05)
DX: I13.2 Hypertensive heart and chronic kidney disease with heart failure and with stage 5 chronic kidney disease, or end stage renal disease (principal); J96.01 Acute respiratory failure with hypoxia; E87.2 Acidosis; E44.1 Mild protein-calorie malnutrition; N18.6 End stage renal disease; D63.1 Anemia in chronic kidney disease; Z20.822 Contact with and (suspected) exposure to COVID-19; I42.9 Cardiomyopathy, unspecified; E11.22 Type 2 diabetes mellitus with diabetic chronic kidney disease; I50.23 Acute on chronic systolic (congestive) heart failure; I25.10 Atherosclerotic heart disease of native coronary artery without angina pectoris; D72.829 Elevated white blood cell count, unspecified; E87.8 Other disorders of electrolyte and fluid balance, not elsewhere classified; I16.0 Hypertensive urgency; I25.2 Old myocardial infarction; E78.00 Pure hypercholesterolemia, unspecified; Z68.25 Body mass index [BMI] 25.0-25.9, adult; Z99.2 Dependence on renal dialysis; Z98.61 Coronary angioplasty status; Z91.19 Patient's noncompliance with other medical treatment and regimen
CPT/HCPCS: 36415; 36600; 71045; 80048; 80053; 82375; 82805; 82962; 83605; 83735; 83880; 83970; 84100; 84145; 84484; 85025; 86705; 86706; 86709; 86803; 87340; 87426; 93005; 94660; 99291; C9803; J0885; J1815; J3490; U0003; U0005

== ENCOUNTER 2022-09-21 12:32 | Inpatient (IN) | payer MEDICAID, OTHER ==
[~2022-09-21] VITALS: Ht 160 cm; Wt 75.7 kg
[2022-09-21 15:02] LABS: BASOPHILS % 0.7 % (0.0-2.0); EOSINOPHILS % 0.6 % (0.0-5.0); HEMOGLOBIN. 8.2 g/dL (14.0-18.0); MEAN CORPUSCULAR HEMOGLOBIN 29.8 pg (28.0-32.0); MEAN CORPUSCULAR VOLUME 90.7 fL (80.0-94.0); MEAN PLATELET VOLUME 9.3 fl (7.4-10.4); MONOCYTES % 4.1 % (2.0-8.0); NEUTROPHILS % 80.6 % (40.0-76.0); PLATELET 196 x1000/uL (130-400); RED BLOOD CELL COUNT 2.76 mill/uL (4.7-6.1); RED CELL DISTRIBUTION WIDTH 15.3 % (11.6-14.6)
[2022-09-21 15:08] LABS: CHLORIDE 107 mEq/L (98-107)
[2022-09-21 15:31] LABS: ETHANOL BLOOD < 10 mg/dL
[2022-09-21] MEDS ORDERED: CALCIUM GLUCONATE 100MG/ML 10ML VIAL IV ONE (17:30)
[2022-09-21] MEDS ORDERED: DEXTROSE 50% WATER 50ML SYRINGE IV ONE (17:30)
[2022-09-21] MEDS ORDERED: SODIUM POLYSTYRENE SULFONATE 15 G/60 ML BOT PO ONE (17:30)
[2022-09-21] MEDS ORDERED: INSULIN REGULAR (HUMULIN R) 300UNITS/3ML VIAL IV ONE (17:30)
[2022-09-21] MEDS ORDERED: LABETALOL HCL VIAL 20 MG/4 ML VIAL IV ONE (19:30)
[2022-09-21] MEDS: CLONIDINE 0.1MG TABLET PO PRN (23:48)
[2022-09-22] MEDS: CLONIDINE 0.1MG TABLET PO PRN ×2 (09:06→17:19)
[2022-09-22 12:00] VITALS: BP 172/86
[2022-09-22 12:23] VITALS: BP 172/86
[2022-09-22 16:00] VITALS: BP 167/80
[2022-09-22] MEDS: GLIPIZIDE 5MG TABLET PO SCH (17:19)
[2022-09-22 18:14] LABS: BASOPHILS % 0.7 % (0.0-2.0); HEMATOCRIT. 25.2 % (42.0-52.0); HEMOGLOBIN. 8.4 g/dL (14.0-18.0); LYMPHOCYTES % 22.7 % (20.0-50.0); MEAN CORPUSCULAR VOLUME 93.1 fL (80.0-94.0); MONOCYTES % 7.5 % (2.0-8.0); NEUTROPHILS % 65.1 % (40.0-76.0); PLATELET 203 x1000/uL (130-400); RED BLOOD CELL COUNT 2.71 mill/uL (4.7-6.1); RED CELL DISTRIBUTION WIDTH 16.1 % (11.6-14.6)
[2022-09-22 18:21] LABS: PROTHROMBIN TIME 10.3 sec (9.6-11.0)
[2022-09-22 18:23] LABS: CHLORIDE 109 mEq/L (98-107)
[2022-09-22 20:40] VITALS: BP 172/92
[2022-09-22] MEDS: GABAPENTIN 100MG CAPSULE PO SCH (21:20)
[2022-09-22] MEDS: ATORVASTATIN CALCIUM 40MG TABLET PO SCH (21:21)
[2022-09-22] MEDS: CARVEDILOL 12.5MG TABLET PO SCH (21:21)
[2022-09-23] VITALS (11 sets, daily range): BP systolic 118–158; BP diastolic 60–85
[2022-09-23] MEDS: GABAPENTIN 100MG CAPSULE PO SCH ×3 (06:00→21:04)
[2022-09-23 06:12] LABS: PROTHROMBIN TIME 10.3 sec (9.6-11.0)
[2022-09-23 06:21] LABS: BASOPHILS % 0.7 % (0.0-2.0); EOSINOPHILS % 2.3 % (0.0-5.0); LYMPHOCYTES % 10.9 % (20.0-50.0); MEAN CORPUSCULAR HEMOGLOBIN 30.1 pg (28.0-32.0); MEAN CORPUSCULAR VOLUME 88.9 fL (80.0-94.0); MEAN PLATELET VOLUME 10.1 fl (7.4-10.4); MONOCYTES % 3.7 % (2.0-8.0); NEUTROPHILS % 82.4 % (40.0-76.0); PLATELET 183 x1000/uL (130-400); RED BLOOD CELL COUNT 2.33 mill/uL (4.7-6.1); RED CELL DISTRIBUTION WIDTH 15.3 % (11.6-14.6)
[2022-09-23 07:37] LABS: HEMATOCRIT. 20.7 % (42.0-52.0)
[2022-09-23 07:58] LABS: HEPATITIS B SURFACE ANTIGEN NEGATIVE
[2022-09-23 08:24] LABS: FOLIC ACID (FOLATE) SERUM 10.2 ng/mL (>5.38)
[2022-09-23] MEDS ORDERED: ASPIRIN 81MG TABLET PO SCH (09:00)
[2022-09-23] MEDS ORDERED: CLOPIDOGREL 75MG TABLET PO SCH (09:00)
[2022-09-23] MEDS: ISOSORBIDE MONONITRATE 30MG TABLET SR 24HR PO SCH (11:20)
[2022-09-23] MEDS: GLIPIZIDE 5MG TABLET PO SCH ×2 (11:20→18:05)
[2022-09-23] MEDS: LOSARTAN POTASSIUM 25 MG TABLET PO SCH (11:21)
[2022-09-23 14:32] LABS: PHOSPHORUS 9.2 mg/dL (2.5-4.9)
[2022-09-23] MEDS: SEVELAMER CARBONATE 800 MG TABLET PO SCH ×2 (18:05→18:06)
[2022-09-23] MEDS: CARVEDILOL 12.5MG TABLET PO SCH ×2 (18:05→21:04)
[2022-09-23] MEDS ORDERED: EPOETIN ALFA-EPBX 4,000 UNIT/ML VIAL SUBCUT NR (21:00)
[2022-09-23] MEDS: ATORVASTATIN CALCIUM 40MG TABLET PO SCH (21:04)
[2022-09-24] VITALS (14 sets, daily range): BP systolic 112–159; BP diastolic 62–91
[2022-09-24] MEDS: GABAPENTIN 100MG CAPSULE PO SCH ×2 (05:12→13:31)
[2022-09-24 06:06] LABS: BASOPHILS % 0.4 % (0.0-2.0); HEMATOCRIT. 24.5 % (42.0-52.0); HEMOGLOBIN. 8.3 g/dL (14.0-18.0); LYMPHOCYTES % 13.5 % (20.0-50.0); MEAN CORPUSCULAR HEMOGLOBIN 30.3 pg (28.0-32.0); MEAN CORPUSCULAR VOLUME 88.8 fL (80.0-94.0); MEAN PLATELET VOLUME 9.7 fl (7.4-10.4); NEUTROPHILS % 80.1 % (40.0-76.0); PLATELET 187 x1000/uL (130-400); RED BLOOD CELL COUNT 2.75 mill/uL (4.7-6.1)
[2022-09-24 07:15] LABS: CHLORIDE 103 mEq/L (98-107)
[2022-09-24 08:09] LABS: PROTHROMBIN TIME 10.7 sec (9.6-11.0)
[2022-09-24] MEDS: SEVELAMER CARBONATE 800 MG TABLET PO SCH ×3 (08:10→17:49)
[2022-09-24] MEDS: CALCIUM ACETATE 667MG CAPSULE PO SCH ×3 (08:10→17:50)
[2022-09-24] MEDS: LOSARTAN POTASSIUM 25 MG TABLET PO SCH (09:00)
[2022-09-24] MEDS ORDERED: CALCITRIOL 0.25MCG CAPSULE PO SCH (09:00)
[2022-09-24] MEDS: CARVEDILOL 12.5MG TABLET PO SCH (09:00)
[2022-09-24] MEDS: ISOSORBIDE MONONITRATE 30MG TABLET SR 24HR PO SCH (09:00)
[2022-09-24] MEDS: GLIPIZIDE 5MG TABLET PO SCH (09:00)
[2022-09-24] MEDS ORDERED: DEXT 5%/0.45% NACL 1000ML 1,000 ML IV SCH (11:00)
[2022-09-24] MEDS ORDERED: DEXTROSE 50% WATER 50ML SYRINGE IV PRN (11:00)
[2022-09-24] MEDS ORDERED: PHENYLEPHRINE HCL 10 MG/ML 1ML (IV VIAL) IV ONE (11:55)
[2022-09-24] MEDS ORDERED: EPHEDRINE SULFATE 50MG/ML VIAL ONE (11:55)
[2022-09-24] MEDS ORDERED: SODIUM CHLORIDE 0.9% 10ML VIAL ONE (11:57)
[2022-09-24] MEDS ORDERED: MIDAZOLAM HCL 2 MG/2 ML VIAL ONE (11:58)
[2022-09-24] MEDS ORDERED: PROPOFOL 200MG/20ML VIAL IV ONE (11:58)
[2022-09-24] MEDS ORDERED: SORBITOL 70% SOLN 30ML PO NR (14:00)
[2022-09-24] MEDS: ATORVASTATIN CALCIUM 40MG TABLET PO SCH (19:55)
[2022-09-27] MEDS ORDERED: EPOETIN ALFA-EPBX 4,000 UNIT/ML VIAL SUBCUT SCH (21:00)
== END 2022-09-24 20:45 | disposition home or self-care (01) | DRG 194 ==
LOC: ER 12:37 → MICUSO 21:19 → 7WST 09-22 12:01
PROVIDERS: ADMIT Internal Medicine; ATTEND Internal Medicine
PROC: 30233N1 Transfusion of Nonautologous Red Blood Cells into Peripheral Vein, Percutaneous Approach (ICD-10-PCS; principal; 2022-09-23)
PROC: 5A1D70Z Performance of Urinary Filtration, Intermittent, Less than 6 Hours Per Day (ICD-10-PCS; 2022-09-23)
PROC: 5A1D70Z Performance of Urinary Filtration, Intermittent, Less than 6 Hours Per Day (ICD-10-PCS; 2022-09-24)
DX: I13.2 Hypertensive heart and chronic kidney disease with heart failure and with stage 5 chronic kidney disease, or end stage renal disease (principal); N18.6 End stage renal disease; E44.1 Mild protein-calorie malnutrition; I42.9 Cardiomyopathy, unspecified; E83.51 Hypocalcemia; E83.39 Other disorders of phosphorus metabolism; D63.1 Anemia in chronic kidney disease; I50.23 Acute on chronic systolic (congestive) heart failure; E87.5 Hyperkalemia; Z20.822 Contact with and (suspected) exposure to COVID-19; N25.81 Secondary hyperparathyroidism of renal origin; E11.22 Type 2 diabetes mellitus with diabetic chronic kidney disease; I16.0 Hypertensive urgency; E78.5 Hyperlipidemia, unspecified; K76.0 Fatty (change of) liver, not elsewhere classified; E78.00 Pure hypercholesterolemia, unspecified; E87.8 Other disorders of electrolyte and fluid balance, not elsewhere classified; I25.10 Atherosclerotic heart disease of native coronary artery without angina pectoris; I25.2 Old myocardial infarction; Z68.29 Body mass index [BMI] 29.0-29.9, adult; Z79.02 Long term (current) use of antithrombotics/antiplatelets; Z79.1 Long term (current) use of non-steroidal anti-inflammatories (NSAID); Z95.5 Presence of coronary angioplasty implant and graft; Z79.82 Long term (current) use of aspirin; Z99.2 Dependence on renal dialysis; Z91.15 Patient's noncompliance with renal dialysis; E11.40 Type 2 diabetes mellitus with diabetic neuropathy, unspecified
CPT/HCPCS: 36415; 71045; 76700; 80048; 80053; 80076; 80320; 82270; 82607; 82728; 82746; 82962; 83540; 83550; 83735; 83880; 84100; 84484; 85025; 85044; 86705; 86709; 86803; 86850; 86900; 86920; 87340; 87426; 90935; 93005; 93306; 93923; 93970; 99291; J0610; J0885; J1815; J2250; J2370; J2704; J3490; P9016; G0480